=== PATIENT | female | born 1985 | race Two or more races ===

== ENCOUNTER 2020-11-27 09:48 | Emergency (ER) | payer MEDICAID, SELFPAY ==
--- NOTE | ~2020-11-27 | US_ITS ---
EXAMINATION: US OBSTETRICAL ULTRASOUND CLINICAL INFORMATION: First trimester . Bleeding. COMPARISON: None. LMP: Not available. Gestational age by maternal dates is . Estimated date of delivery by maternal dates is . TECHNIQUE: Transabdominal first trimester OB ultrasound FINDINGS: There is a single intrauterine gestational sac with visible yolk sac, embryo/fetus, and cardiac activity. There is a single thin membrane seen in the gestational sac. It is uncertain whether this represents the amnion/normal chorioamniotic separation. There is no significant subchorionic hemorrhage or hematoma. HR: 160 beats per minute. CRL (crown rump length): 6.57 cm (13 weeks 0 days +/- 4 days). ARAM (estimated date of delivery): 06/04/2021 +/- 4 days. MATERNAL ADNEXA: The right maternal ovary measures 2.5 x 1.6 x 2.8 cm. The left maternal ovary measures 3 x 1.8 x 2.6 cm. There is no significant maternal adnexal mass. No maternal pelvic ascites. US/US OB pelvic and transvaginal IMPRESSION: 1. Single intrauterine gestation with ultrasound gestational age of 13 weeks 0 days +/- 4 days. 2. Estimated date of delivery is 06/04/2021 +/- 4 days. 3. There is a single thin membrane seen in the gestational sac. It is uncertain whether this represents the amnion/normal chorioamniotic separation.
[2020-11-27 10:24] VITALS: BP 111/72; PULSE 79; RESP 18; TEMP 36.6; O2SAT 100; BMI 30.2
[2020-11-27 11:46] LABS: MANUAL DIFF FLAG NO
[2020-11-27 11:47] LABS: Appearance Urine HAZY; Color Urine YELLOW; Glucose Urine UA 100 MG/DL (NEG); Leukocyte Esterase Urine NEG (NEG); Nitrite Urine NEG (NEG); Urine Blood NEG (NEG); Urine Ketones NEG (NEG); Urine Protein NEG (NEG-TRACE)
[2020-11-27 11:51] LABS: Basophils Percent Auto 0.2 % (0-2); Eosinophils Percent Auto 0.3 % (0-4); Hematocrit 40.2 % (37-47); Hemoglobin 13.5 g/dl (12.0-16.0); Imm Gran Abs Auto 0.02 X10*3/uL (0.00-0.03); Imm Gran Pct Auto 0.3 % (0.0-0.4); Lymphocytes Absolute Auto 1.8 X10*3/uL (1.2-4.9); Lymphocytes Percent Auto 30.4 % (20-40); Mean Corpuscular HGB Conc 33.6 g/dl (31.0-35.0); Mean Corpuscular Hemoglobin 29.4 pg (27.0-33.0); Mean Corpuscular Volume 87.6 fL (80-98); Mean Platelet Volume 10.8 fL (9.4-12.3); Monocytes Absolute Auto 0.4 X10*3/uL (0.1-1.2); Monocytes Percent Auto 6.6 % (2-11); Neutrophils Absolute Auto 3.6 X10*3/uL (2.0-8.3); Neutrophils Percent Auto 62.2 % (45-73); Platelet Count 284 X10*3/uL (160-400); Red Blood Count 4.59 X10*6/uL (4.20-5.50); Red Cell Distribution Width 12.6 % (11.0-16.0); White Blood Count 5.8 X10*3/uL (4.8-10.8)
[2020-11-27 12:06] LABS: Anion Gap 12 (12-20); Blood Urea Nitrogen 6 mg/dL (9-16); Calcium 9.3 mg/dL (8.4-10.2); Carbon Dioxide 22 mmol/L (22-29); Chloride 104 mmol/L (96-108); Creatinine Clr Calc Pharmacy 132.4; Estimated Glomerular Filt Rate > 60; Glucose Random 103 mg/dL (60-115); Potassium 3.8 mmol/L (3.3-5.1); Sodium 134 mmol/L (135-145)
--- NOTE | 2020-11-27 13:05 | ED.PREGNANCY ---
HPI - General Chief complaint: Abdominal Pain Stated complaint: 3 mths preg - vag bleed Time Seen by Provider: 11/27/20 13:04 Source: patient Mode of arrival: ambulatory Limitations: no limitations History of Present Illness HPI Narrative: Dark brown vaginal spotting. In August 14 patient had a miscarriage, has not had a normal period since then. Patient states she is 2 months but now having bleeding. MD Complaint: vaginal bleeding Onset (ago): day(s) (2) Severity: mild Quality: Cramping Exacerbating factors: none Associated symptoms: denies other symptoms OB History - Current : no complications Related Data Allergies Allergy/AdvReac Type Severity Reaction Status Date / Time No Known Allergies Allergy Verified 11/27/20 10:27 Review of Systems Constitutional: Constitutional: Reports no additional constitutional complaints Eyes: Eyes: Reports no additional eye complaints ENT: Denies dizziness Cardiovascular: Cardiovascular: Reports no additional cardiovascular complaints Respiratory: Respiratory: Reports as per HPI Gastrointestinal: Gastrointestinal: Reports no additional gastrointestinal complaints Genitourinary: Genitourinary: Reports no additional female genitourinary complaints Musculoskeletal: Musculoskeletal: Reports no additional musculoskeletal complaints Integumentary/Breasts: Skin/Breast: Denies rash Neurologic: Reports system reviewed and no additional complaints, except as documented, Denies dizziness and Denies Sensory deficit (Neuro) Psychiatric: Psychiatric: Denies anxiety [facility] Past Medical History Medical History Asthma Diabetes Social History Social History Advance Directives: No Advance Directives Information Provided: No Patient : No Physical Exam Vital Signs: Vital Signs: Last Vital Signs Temp 98 F 11/27/20 10:24 Pulse 79 11/27/20 10:24 Resp 18 11/27/20 10:24 BP 111/72 11/27/20 10:24 Pulse Ox 100 11/27/20 10:24 Body Mass Index 30.2 Const: General: healthy appearing Nutritional Appearance: average body habitus Orientation/consciousness: oriented to person and patient oriented x3 Limitations: no limitations HENMT: Head: Yes normal to inspection Ears: external ears normal General nose exam: Normal external nose present Mouth: Normal oral and palatal mucosa present and oropharynx normal Throat: Yes posterior oropharynx normal Eyes: General: appearance normal, both eyes and all related structures Neck: Other: supple Neck: Yes normal visual inspection Chest: Chest palpation & inspection: normal inspection of the chest Resp: Auscultation: clear to auscultation bilaterally Cardio: Jugular venous distension: no JVD Rate: regular rate Rhythm: regular rhythm Heart sounds: S1 normal heart sound present and S2 normal heart sound present GI: Inspection: Yes normal to inspection Palpation (GI): Soft to palpation, nontender and No hepatosplenomegaly present Auscultation: normal bowel sounds : General: Yes no CVA tenderness Back/Spine/Pelvis: Back: no CVA tenderness Skin: General skin exam: no rashes or lesions noted Neuro: General: oriented to person and patient oriented x3 Cranial nerves: Yes CN's II-XII intact bilaterally Motor exam (neuro): 5/5 motor strength present throughout Sensory Exam: No Sensory deficit (Neuro) Extrem: General: Yes normal to inspection Psych: Appearance: grossly normal Course Reevaluation(s) Reevaluation #1: US shows normal IUP, no evidence of hemorrhage will dc home with threatened miscarriage instructions Time: 15:46 MDM - OB/Uterine Contractions Lab Data Result diagrams: 11/27/20 11:41 11/27/20 11:41 Labs: Lab Results 11/27/20 11/27/20 11/27/20 Range/Units 11:41 11:41 11:42 WBC 5.8 (4.8-10.8) X10*3/uL RBC 4.59 (4.20-5.50) X10*6/uL Hgb 13.5 (12.0-16.0) g/dl Hct 40.2 (37-47) % MCV 87.6 (80-98) fL MCH 29.4 (27.0-33.0) pg MCHC 33.6 (31.0-35.0) g/dl RDW 12.6 (11.0-16.0) % Plt Count 284 (160-400) X10*3/uL MPV 10.8 (9.4-12.3) fL Immature Gran % (Auto) 0.3 (0.0-0.4) % Neut % (Auto) 62.2 (45-73) % Lymph % (Auto) 30.4 (20-40) % [place] % (Auto) 6.6 (2-11) % Eos % (Auto) 0.3 (0-4) % Baso % (Auto) 0.2 (0-2) % Lymph # (Auto) 1.8 (1.2-4.9) X10*3/uL [place] # (Auto) 0.4 (0.1-1.2) X10*3/uL Eos # (Auto) 0.0 (0.0-0.4) X10*3/uL Baso # (Auto) 0.0 (0.0-0.2) X10*3/uL Abs Immat Gran (auto) 0.02 (0.00-0.03) X10*3/uL Absolute Neuts (auto) 3.6 (2.0-8.3) X10*3/uL Absolute Nucleated RBC 0.000 (0.0-0.012) X10*3/uL Nucleated RBC % (auto) 0.0 (0.0-0.2) /100WBC Sodium 134 L (135-145) mmol/L Potassium 3.8 (3.3-5.1) mmol/L Chloride 104 (96-108) mmol/L Carbon Dioxide 22 (22-29) mmol/L Anion Gap 12 (12-20) BUN 6 L (9-16) mg/dL Creatinine 0.60 (0.5-1.4) mg/dL Estim Creat Clear Calc 132.4 Estimated GFR > 60 Random Glucose 103 (60-115) mg/dL Calcium 9.3 (8.4-10.2) mg/dL Beta HCG, Quant 59764 mIU/mL Urine Color YELLOW Urine Appearance HAZY Urine pH 7.0 (5.0-8.0) Ur Specific [place] 1.020 (1.005-1.025) Urine Protein NEG (NEG-TRACE) MG/DL Urine Glucose (UA) 100 H (NEG) MG/DL Urine Ketones NEG (NEG) MG/DL Urine Blood NEG (NEG) Urine Nitrite NEG (NEG) Ur Leukocyte Esterase NEG (NEG) Imaging Data pelvic US: Radiologist's impression: IMPRESSION: 1. Single intrauterine gestation with ultrasound gestational age of? 13 weeks 0 days +/- 4 days. 2. Estimated date of delivery is 06/04/2021 +/- 4 days. 3. There is a single thin membrane seen in the gestational sac. It is uncertain whether this represents the amnion/normal chorioamniotic separation. Discharge Plan Discharge Clinical Impression: , threatened Patient Disposition: Home, Self-Care Instructions: Threatened Miscarriage (ED) Referrals: Armando Elizabeth MD [Physician] - 5 days (call for follow up)
== END 2020-11-27 17:00 | disposition home or self-care (01) ==
PROVIDERS: Emergency Provider Emergency Medicine
DX: O20.0 Threatened abortion (principal); Z3A.13 13 weeks gestation of pregnancy
CPT/HCPCS: 36415; 76801; 76817; 80048; 81003; 84702; 85025; 99283; 99284

== ENCOUNTER 2021-03-26 10:25 | Emergency (ER) | payer MEDICAID, SELFPAY ==
--- NOTE | ~2021-03-26 | US_ITS ---
EXAMINATION: US ABDOMEN COMPLETE. ULTRASOUND OB LIMITED. CLINICAL INFORMATION: Upper abdominal pain and diarrhea.. COMPARISON: None TECHNIQUE: Real-time imaging of the abdominal viscera. FINDINGS: ABDOMEN: PANCREAS: The pancreas is suboptimally seen. ABDOMINAL AORTA: The proximal segment is normal in caliber. The mid and the distal abdominal aorta segments are not seen. INFERIOR VENA CAVA: Visualized portions are normal. LIVER: Normal. The liver is normal in size. The liver contour is normal. Parenchymal echogenicity is normal. No focal hepatic lesion. There is no intrahepatic biliary duct dilatation seen. GALLBLADDER: There is one large echogenic gallstone with posterior shadowing. There is anechoic fluid within the palmar wall and surrounding the gallbladder wall. COMMON BILE DUCT: Normal in caliber measuring 0.9 cm in diameter. RIGHT KIDNEY: Normal. No hydronephrosis. No renal calculi or focal parenchymal lesions. The kidney measures 10.3 cm in maximum dimension. LEFT KIDNEY: Normal. No hydronephrosis. No renal calculi or focal parenchymal lesions. The kidney measures 13.0 cm in maximum dimension. SPLEEN: Normal. The spleen measures 11.0 cm in maximum dimension. FREE FLUID: None. OB LIMITED ULTRASOUND: The fetus is in cephalic position with a heart rate of 1 69 bpm placenta is posterior. Mild M.D. the gestational age is 29 weeks and 0 days and ARAM of 06/11/2021. Bilateral ovaries are visualized and appear unremarkable. Mild fullness of the right adnexa is seen with large vessels. US/US abdomen complete IMPRESSION: Solitary echogenic large gallstone with fluid within the gallbladder wall and surrounding the gallbladder suggestive of acute cholecystitis. Rest of the abdominal ultrasound is unremarkable. Single live intrauterine fetus with a heart rate of 1 69 bpm. The placenta is unremarkable and lies posterior in location.
[2021-03-26 11:09] LABS: COVID-19 Test Positive (Negative)
[2021-03-26 11:10] VITALS: BP 102/65; PULSE 125; RESP 18; TEMP 36.1; O2SAT 98; BMI 32.5
[2021-03-26 11:39] LABS: MANUAL DIFF FLAG NO
[2021-03-26 11:41] LABS: Basophils Percent Auto 0.2 % (0-2); Eosinophils Percent Auto 0.5 % (0-4); Hematocrit 32.4 % (37.0-47.0); Imm Gran Abs Auto 0.04 X10*3/uL (0.00-0.03); Imm Gran Pct Auto 0.7 % (0.0-0.4); Lymphocytes Absolute Auto 0.5 X10*3/uL (1.2-4.9); Lymphocytes Percent Auto 8.9 % (20-40); Mean Corpuscular Hemoglobin 29.6 pg (27.0-33.0); Mean Corpuscular Volume 87.3 fL (80.0-98.0); Mean Platelet Volume 10.2 fL (9.4-12.3); Monocytes Absolute Auto 0.7 X10*3/uL (0.1-1.2); Monocytes Percent Auto 11.8 % (2-11); Neutrophils Absolute Auto 4.6 x10*3/uL (2.0-8.3); Neutrophils Percent Auto 77.9 % (45-73); Platelet Count 233 X10*3/uL (160-400); Red Blood Count 3.71 X10*6/uL (4.20-5.50); White Blood Count 5.9 X10*3/uL (4.8-10.8)
[2021-03-26 12:02] LABS: Alanine Aminotransferase 69 U/L (0-31); Albumin Level 3.2 g/dL (3.5-5.0); Alkaline Phosphatase 147 U/L (39-117); Anion Gap 13 (12-20); Aspartate Amino Transferase 85 U/L (5-31); Blood Urea Nitrogen 4 mg/dL (9-16); Calcium 8.6 mg/dL (8.4-10.2); Carbon Dioxide 20 mmol/L (22-29); Chloride 105 mmol/L (96-108); Creatinine Clr Calc Pharmacy 125.9; Estimated Glomerular Filt Rate > 60; Glucose Random 266 mg/dL (60-115); Magnesium 1.4 mg/dL (1.6-2.6); Potassium 3.7 mmol/L (3.3-5.1); Sodium 134 mmol/L (135-145); Total Protein 6.2 g/dL (6.5-8.0)
[2021-03-26 12:04] LABS: HCG Quantitative 12417 mIU/mL
[2021-03-26 12:06] LABS: Bilirubin Total 0.3 mg/dL (0.0-1.0)
--- NOTE | 2021-03-26 12:20 | ED_ITS ---
HPI - URI/Sore Throat General Chief Complaint: Upper Respiratory Symptoms Stated Complaint: headache,fever,diarrhea Time Seen by Provider: 03/26/21 11:10 Source: patient Mode of arrival: ambulatory Limitations: no limitations History of Present Illness HPI Narrative: 36-year-old female who is approximately 29 weeks for gestational age who is [id number] being followed by an OBGYN in [place] who has a past medical history of diabetes was on metformin although was switched to insulin presenting to the ED with URI symptoms which include subjective fevers, chills, body aches, fatigue, malaise, myalgias and diarrhea for the past 2 days. Reports that she went to her cousin's house on and they are all having similar symptoms. Although they have not been tested for COVID. She reports that she got 1 dose of the Pfizer vaccine recently. She reports that her was confirmed by ultrasound and she has a follow-up coming up with her OBGYN. She reports she is having some nausea no vomiting. And she is also having some upper abdominal pain for the past 2 days. Denies any lower abdominal pain or back pain. She denies any measured fevers, dizziness, neck pain/stiffness, chest pain or shortness of breath, dyspnea on exertion, orthopnea, palpitations, back pain, dysuria, hematuria, abnormal vaginal discharge, vaginal bleeding, rashes, recent travel or any other symptoms comp laints or concerns at this time. MD elicited complaint: fever and other (Body aches and diarrhea) Pertinent past history: other (See above) Onset (ago): day(s) (2) Consistency: constant Severity: mild Able to tolerate fluids by mouth: Yes Exacerbating factors: nothing Relieving factors: nothing Context: sick contacts Associated symptoms: fever, chills, myalgias, headache and abdominal pain Treatments prior to arrival: none Related Data Allergies Allergy/AdvReac Type Severity Reaction Status Date / Time No Known Allergies Allergy Verified 11/27/20 10:27 Review of Systems Review of Systems: Constitutional : Positive subjective fevers/chills/fatigue/malaise, No Weight loss, No Night Sweats ENT/Mouth : No Hearing loss, No Ear Pain, No Nasal Congestion, No Sinus Pain, No Hoarseness, No sore throat, No Rhinorrhea, No Swallowing Difficulty Eyes: No Eye Pain, No Swelling, No Redness, No Foreign Body, No Discharge, No Vision Changes Cardiovascular : No Chest Pain, No SOB, No Dyspnea on Exertion, No Orthopnea, No Edema, No Palpitations Respiratory : No Cough, No Sputum, No Wheezing, No Smoke Exposure, No Dyspnea Gastrointestinal : Positive nausea/diarrhea and abdominal pain at the upper aspect of the abdomen, no lower abdominal pain, No Vomiting, No Constipation, No Hematochezia, No Melena Genitourinary : no irregular bleeding, No Dysuria, No Urinary Frequency, No Marcelino turia, No Urinary Incontinence, No Urgency, No Flank Pain, No Urinary Flow Changes, No Hesitancy Musculoskeletal : Positive myalgias, No joint pain, No Joint Swelling Skin : No Skin Lesions, No rash Neuro : No Weakness, No Numbness, No Paresthesias, No Loss of Consciousness, No Dizziness, No Headache Psych : No Anxiety/Panic, No Depression, No SI/HI/AH/VH, No Social Issues, Heme/Lymph: No Bruising, No Bleeding,No Lymphadenopathy Endocrine : No Polyuria, No Polydipsia, No Temperature Intolerance Yes all other systems are reviewed and are negative [facility] Past Medical History Attestation statement: The following information was validated with the patient. Medical History Asthma Diabetes Social History Social History Alcohol intake: never Patient Tobacco Use Status: Never used Tobacco Use of substances other than those prescribed or required for medical reasons: No Advance Directives: No Advance Directives Information Provided: No Patient : Yes Physical Exam Vital Signs: Vital Signs: Last Vital Signs Temp 97.0 F 03/26/21 11:10 Pulse 111 H 03/26/21 12:38 Resp 18 03/26/21 12:38 BP 106/67 03/26/21 12:38 Pulse Ox 97 03/26/21 12:38 BMI result Body Mass Index 32.5 vital signs have been reviewed as normal and appeared to be correct. Blood pressure normal. Heart rate tachycardic at 125. Respiration rate normal. Temperature normal. Oxygen saturation normal. Appearance: Alert. Oriented X3. No acute distress. Head: Normal external exam. Normocephalic. Atraumatic. Eyes: PERRLA. EOMI. Conjunctiva and sclera normal. Eyelids normal. ENT: EAC normal. TM's Normal. Pharynx normal. Uvula midline. Moist mucous membranes. No trismus noted. No drooling noted. No muffled voice noted. Neck: Normal inspection. Neck supple. FROM. No adenopathy. Thyroid Normal. No meningeal signs. No neck mass noted. CVS: Normal heart rate and rhythm. Heart sound normal. Pulses normal throughout. No murmurs/rales/gallops. Respiratory: No respiratory distress. Painless inspiration. Breath sounds normal. No wheezes/rales/rhonchi noted. Chest nontender. No accessory muscle usage noted or decreased air movement noted. Abdomen: Gravid uterus consistent with dates. Normal tones noted. Soft and mild tenderness palpation to the epigastric/upper abdominal area. No tenderness to the lower abdomen or the flanks. Bowel sounds normal in all 4 quadrants. No distention noted. No organomegaly noted. No visible injury noted. Back: No CVA tenderness. Full range of motion noted. No rashes/lesion/in duration/fluctuance or signs of infection noted. Skin: Skin warm and dry. Normal skin color. Normal skin turgor. No rashes/lesions/lacerations noted. Extremities: No lower extremity edema. No calf tenderness is noted. Otherwise all other extremities exhibit normal range of motion and nontender. Neuro: Oriented X 3. No motor deficit. No sensory deficit. Reflexes normal. Normal steady gait. No focal neuro deficits noted. Vascular: + radial pulses/+ 2 distal pedal pulses/+2 dorsalis pedis b/l. Normal cap refill. No cyanosis noted to upper extremity nails and lower extremity toes nails. Course Course Course Narrative: 11:20am - 36-year-old female who is approximately 29 weeks for gestational age who is [id number] being followed by an OBGYN in [place] who has a past medical history of diabetes was on metformin although was switched to insulin presenting to the ED with URI symptoms which include subjective fevers, chills, body aches, fatigue, malaise, myalgias and diarrhea for the past 2 days. Reports that she went to her cousin's house on [address] and they are all having similar symptoms. Although they have not been tested for COVID. She reports that she got 1 dose of the Pfizer vaccine recently. She reports that her was confirmed by ultrasound and she has a follow-up coming up with her OBGYN. She reports she is having some nausea no vomiting. And she is also having some upper abdominal pain for the past 2 days. Denies any lower abdominal pain or back pain. Plan: Patient is positive for COVID it was obtained while the patient is in triage. Due to patient having abdominal pain and being 29 weeks will obtain labs including a lipase to evaluate for possible cholecystitis, will also obtain a pelvic/transvaginal OB ultrasound to evaluate the fetus. Will obtain labs and re-evaluate. Reevaluation(s) Reevaluation #1: - labs return patient with mild anemia with an H&H of 11.0/32.4. Sodium 134. Carbon dioxide 20. BUN 4. Random glucose 266. P atient reports she did not take her insulin this morning. Magnesium 1.4 repleting with 2 g of IV magnesium at this time while patient is on a residential monitor. Lipase is only 38. LDH is 148. AST/ALT/alkaline phosphate 85/69/147. Total protein 6.2. Albumin 3[place] [address]. Otherwise all other labs are within normal limits. - UA revealed a 1000 glucose and 15 ketones otherwise no evidence of UTI. - patient is positive for COVID. - ultrasound of OB and complete abdomen revealed large gallstone with fluid within the gallbladder wall and surrounding gallbladder suggestive of acute cholecystitis. The rest of the abdominal ultrasound is within normal limits. And patient has a single live intrauterine fetus with a heart rate of 169 the placenta is unremarkable and lies posterior in location. - therefore at this time I will consult with [facility] for possibl e transfer for acute cholecystitis. Patient is agreeable to this. Time: 13:02 Reevaluation #2: Patient was accepted by OBGYN at [facility] Dr. Sadie Johnson she will go to Labor and delivery. Patient understands agrees with this plan. Time: 13:33 [facility] - URI/Sore Throat Medical Records Attestation: I reviewed the patient's medical records. Lab Data Attestation: I reviewed the patient's lab results. Result diagrams: 03/26/21 11:34 03/26/21 11:34 Labs: Lab Results 03/26/21 03/26/21 03/26/21 Range/Units 10:49 11:34 11:34 WBC 5.9 (4.8-10.8) X10*3/uL RBC 3.71 L (4.20-5.50) X10*6/uL Hgb 11.0 L (12.0-16.0) g/dl Hct 32.4 L (37.0-47.0) % MCV 87.3 (80.0-98.0) fL MCH 29.6 (27.0-33.0) pg MCHC 34.0 (31.0-35.0) g/dl RDW 13.0 (11.0-16.0) % Plt Count 233 (160-400) X10*3/uL MPV 10.2 (9.4-12.3) fL Immature Gran % (Auto) 0.7 H (0.0-0.4) % Neut % (Auto) 77.9 H (45-73) % Lymph % (Auto) 8.9 L (20-40) % [place] % (Auto) 11.8 H (2-11) % Eos % (Auto) 0.5 (0-4) % Baso % (Auto) 0.2 (0-2) % Lymph # (Auto) 0.5 L (1.2-4.9) X10*3/uL [place] # (Auto) 0.7 (0.1-1.2) X10*3/uL Eos # (Auto) 0.0 (0.0-0.4) X10*3/uL Baso # (Auto) 0.0 (0.0-0.2) X10*3/uL Abs Immat Gran (auto) 0.04 H (0.00-0.03) X10*3/uL Absolute Neuts (auto) 4.6 (2.0-8.3) x10*3/uL Absolute Nucleated RBC 0.000 (0.0-0.012) X10*3/uL Nucleated RBC % (auto) 0.0 (0.0-0.2) /100WBC Sodium 134 L (135-145) mmol/L Potassium 3.7 (3.3-5.1) mmol/L Chloride 105 (96-108) mmol/L Carbon Dioxide 20 L (22-29) mmol/L Anion Gap 13 (12-20) BUN 4 L (9-16) mg/dL Creatinine 0.65 (0.5-1.4) mg/dL Estim Creat Clear Calc 125.9 Estimated GFR > 60 Random Glucose 266 H (60-115) mg/dL Calcium 8.6 D (8.4-10.2) mg/dL Magnesium 1.4 L* (1.6-2.6) mg/dL Total Bilirubin 0.3 (0.0-1.0) mg/dL AST 85 H (5-31) U/L ALT 69 H (0-31) U/L Alkaline Phosphatase 147 H (39-117) U/L Lactate Dehydrogenase 148 (122-220) U/L Total Protein 6.2 L (6.5-8.0) g/dL Albumin 3.2 L (3.5-5.0) g/dL Lipase 38 (8-78) U/L Beta HCG, Quant mIU/mL Urine Color Urine Appearance Urine pH (5.0-8.0) Ur Specific [place] (1.005-1.025) Urine Protein (NEG-TRACE) MG/DL Urine Glucose (UA) (NEG) MG/DL Urine Ketones (NEG) MG/DL Urine Blood (NEG) Urine Nitrite (NEG) Ur Leukocyte Esterase (NEG) Urine RBC (0) /HPF Urine WBC (0-4) /HPF Ur Squamous Epith Cells /LPF Urine Bacteria /LPF COVID-19 ([facility]) Positive A (Negative) COVID-19 Clin Com See Note 03/26/21 03/26/21 Range/Units 11:34 12:27 WBC (4.8-10.8) X10*3/uL RBC (4.20-5.50) X10*6/uL Hgb (12.0-16.0) g/dl Hct (37.0-47.0) % MCV (80.0-98.0) fL MCH (27.0-33.0) pg MCHC (31.0-35.0) g/dl RDW (11.0-16.0) % Plt Count (160-400) X10*3/uL MPV (9.4-12.3) fL Immature Gran % (Auto) (0.0-0.4) % Neut % (Auto) (45-73) % Lymph % (Auto) (20-40) % [place] % (Auto) (2-11) % Eos % (Auto) (0-4) % Baso % (Auto) (0-2) % Lymph # (Auto) (1.2-4.9) X10*3/uL [place] # (Auto) (0.1-1.2) X10*3/uL Eos # (Auto) (0.0-0.4) X10*3/uL Baso # (Auto) (0.0-0.2) X10*3/uL Abs Immat Gran (auto) (0.00-0.03) X10*3/uL Absolute Neuts (auto) (2.0-8.3) x10*3/uL Absolute Nucleated RBC (0.0-0.012) X10*3/uL Nucleated RBC % (auto) (0.0-0.2) /100WBC Sodium (135-145) mmol/L Potassium (3.3-5.1) mmol/L Chloride (96-108) mmol/L Carbon Dioxide (22-29) mmol/L Anion Gap (12-20) BUN (9-16) mg/dL Creatinine (0.5-1.4) mg/dL Estim Creat Clear Calc Estimated GFR Random Glucose (60-115) mg/dL Calcium (8.4-10.2) mg/dL Magnesium (1.6-2.6) mg/dL Total Bilirubin (0.0-1.0) mg/dL AST (5-31) U/L ALT (0-31) U/L Alkaline Phosphatase (39-117) U/L Lactate Dehydrogenase (122-220) U/L Total Protein (6.5-8.0) g/dL Albumin (3.5-5.0) g/dL Lipase (8-78) U/L Beta HCG, Quant 66115 mIU/mL Urine Color YELLOW Urine Appearance HAZY Urine pH 6.0 (5.0-8.0) Ur Specific [place] 1.015 (1.005-1.025) Urine Protein NEG (NEG-TRACE) MG/DL Urine Glucose (UA) >=1000 H (NEG) MG/DL Urine Ketones 15 (NEG) MG/DL Urine Blood NEG (NEG) Urine Nitrite NEG (NEG) Ur Leukocyte Esterase NEG (NEG) Urine RBC 0-2 (0) /HPF Urine WBC 0-2 (0-4) /HPF Ur Squamous Epith Cells 1+ /LPF Urine Bacteria NONE /LPF COVID-19 ([facility]) (Negative) COVID-19 Clin Com Imaging Data Abdominal ultrasound Ob ultrasound: Attestation: I personally reviewed and interpreted this imaging study as follows: Radiologist's impression: FINDINGS: ABDOMEN: PANCREAS: The pancreas is suboptimally seen. ABDOMINAL AORTA: The proximal segment is normal in caliber. The mid and the distal abdominal aorta segments are not seen. INFERIOR VENA CAVA: Visualized portions are normal. LIVER: Normal. The liver is normal in size. The liver contour is normal. Parenchymal echogenicity is normal. No focal hepatic lesion. There is no intrahepatic biliary duct dilatation seen. GALLBLADDER: There is one large echogenic gallstone with posterior shadowing. There is anechoic fluid within the palmar wall and surrounding the gallbladder wall. COMMON BILE DUCT: Normal in caliber measuring 0.9 cm in diameter. RIGHT KIDNEY: Normal. No hydronephrosis. No renal calculi or focal parenchymal lesions. The kidney measures 10.3 cm in maximum dimension. LEFT KIDNEY: Normal. No hydronephrosis. No renal calculi or focal parenchymal lesions. The kidney measures 13.0 cm in maximum dimension. SPLEEN: Normal. The spleen measures 11.0 cm in maximum dimension. FREE FLUID: None. OB LIMITED ULTRASOUND: The fetus is in cephalic position with a heart rate of 1 69 bpm placenta is posterior. Mild M.D. the gestational age is 29 weeks and 0 days and ARAM of 06/11/2021. Bilateral ovaries are visualized and appear unremarkable. Mild fullness of the right adnexa is seen with large vessels. US/US abdomen complete IMPRESSION: Solitary echogenic large gallstone with fluid within the gallbladder wall and surrounding the gallbladder suggestive of acute cholecystitis. ? Rest of the abdominal ultrasound is unremarkable. ? Single live intrauterine fetus with a heart rate of 1 69 bpm. The placenta is unremarkable and lies posterior in location. Critical Care Time Critical Care Time Critical Care Time: Yes Total Critical Care Time: 60 Attestation: I personally attest to this time spent taking care of the patient Discharge Plan Discharge Clinical Impression: Acute cholecystitis, COVID-19, Low blood magnesium Patient Disposition: Xfer Acute [facility] Transfer Details: [facility] By JARRETT Johnson at Labor and Delivery
[2021-03-26 12:29] LABS: Lipase 38 U/L (8-78)
[2021-03-26 12:38] VITALS: BP 106/67; PULSE 111; RESP 18; O2SAT 97
[2021-03-26 12:41] LABS: Appearance Urine HAZY; Color Urine YELLOW; Glucose Urine UA >=1000 MG/DL (NEG); Leukocyte Esterase Urine NEG (NEG); Nitrite Urine NEG (NEG); Specific Gravity - Urine 1.015 (1.005-1.025); Urine Blood NEG (NEG); Urine Ketones 15 MG/DL (NEG); Urine Protein NEG (NEG-TRACE)
[2021-03-26 12:50] LABS: Lactate Dehydrogenase 148 U/L (122-220)
[2021-03-26 12:58] LABS: RBC Urine 0-2 /HPF (0); Squamous Epithelial Cell Urine 1+ /LPF; WBC Urine 0-2 /HPF (0-4)
[2021-03-26] MEDS: Magnesium Sulfate/H2O 2 GM/50 ML PIGGYBACK IV (13:30)
[2021-03-26] MEDS: 0.9 % Sodium Chloride 1,000 ML 999 ML IVCONT (13:30)
--- NOTE | 2021-03-26 14:07 | PC.NURSE ---
@14:05 CALL FROM [facility] PT PLACEMENT WITH ROOM ASSIGNMENT [place] [address], ROOM [address]22 DR THEODORE CHAVARRIA MD RN TO RN SHOULD BE CALLED TO [phone]
--- NOTE | 2021-03-26 14:30 | PC.NURSE ---
call placed to [facility] for report
[2021-03-26 16:13] VITALS: BP 106/71; PULSE 107; RESP 16; O2SAT 98
== END 2021-03-26 18:06 | disposition short-term general hospital (02) ==
PROVIDERS: Physician Assistant Medical; Emergency Provider Emergency Medicine
DX: O98.513 Other viral diseases complicating pregnancy, third trimester (principal); U07.1 COVID-19; O99.613 Diseases of the digestive system complicating pregnancy, third trimester; K81.0 Acute cholecystitis; O26.893 Other specified pregnancy related conditions, third trimester; E83.42 Hypomagnesemia; O24.113 Pre-existing type 2 diabetes mellitus, in pregnancy, third trimester; E11.9 Type 2 diabetes mellitus without complications; Z79.4 Long term (current) use of insulin; O09.523 Supervision of elderly multigravida, third trimester; Z3A.29 29 weeks gestation of pregnancy
CPT/HCPCS: 36415; 76700; 76815; 80053; 81001; 83615; 83690; 83735; 84702; 85025; 87635; 96361; 96365; 96366; 99284; 99291; J3475

== ENCOUNTER 2021-05-02 00:15 | Emergency (ER) | payer MEDICAID, SELFPAY ==
[2021-05-02 00:18] VITALS: BP 159/86; PULSE 96; RESP 16; TEMP 36.8; O2SAT 99; BMI 33.3
--- NOTE | 2021-05-02 00:34 | ED.GENADULT ---
HPI - General Adult General Chief complaint: Extremity Problem Stated complaint: both feet and abd swollen Time Seen by Provider: 05/02/21 00:32 Source: patient Mode of arrival: ambulatory Limitations: no limitations History of Present Illness HPI narrative: 34w6d D = US IDDM no issues during other than had GB removed she reports she came in tonight due to her ankles being swollen and more painful, has been on her feet a lot more at work. 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[employer]) Associated symptoms: other (has mild headache) Treatments prior to arrival: none Related Data Allergies Allergy/AdvReac Type Severity Reaction Status Date / Time No Known Allergies Allergy Verified 11/27/20 10:27 Review of Systems Review of Systems: Constitutional : No Fever, No Chills ENT/Mouth : No Ear Pain, No Hoarseness, No sore throat Eyes: No Eye Pain, No Swelling, No Redness, No Foreign Body Cardiovascular : No Chest Pain, No SOB Respiratory : No Cough, No Dyspnea Gastrointestinal : No Nausea, No Vomiting, No Diarrhea, No abdominal Pain Genitourinary : No Dysuria, No Hematuria, no vaginal bleeding Musculoskeletal : positive joint pain, No Myalgias, pos Joint Swelling Skin : No Skin lacerations, No rash Neuro : No Weakness, No Numbness, No Loss of Consciousness, No Dizziness, pos Headache Psych : No Anxiety/Panic, No Depression Heme/Lymph: no easy bruising, no Lymphadenopathy Endocrine : No Polyuria, No Polydipsia All other systems reviewed and are negative PMFSH Past Medical History Attestation statement: The following information was validated with the patient. Medical History Asthma Diabetes Social History Social History Alcohol intake: never Patient Tobacco Use Status: Never used Tobacco Use of substances other than those prescribed or required for medical reasons: No Advance Directives: No Patient : Yes Physical Exam Vital Signs: Vital Signs: Last Vital Signs Temp 98.3 F 05/02/21 00:18 Pulse 75 05/02/21 01:43 Resp 16 05/02/21 01:43 BP 117/79 05/02/21 01:43 Pulse Ox 98 05/02/21 01:43 BMI result Body Mass Index 33.3 Appearance: Alert. Oriented X3. No acute distress. Eyes: Pupils equal, round and reactive to light. ENT: Pharynx normal. Neck: Normal inspection. Neck supple. CVS: Normal heart rate and rhythm. Pulses normal. Respiratory: No respiratory distress. Breath sounds normal. Abdomen: Soft and nontender. Gravid uterus Skin: Skin warm and dry. Normal skin color. Normal skin turgor. Extremities: trace to 1+ mild pitting edema of both ankles No calf ttp . no jonathan's sign Neuro: Oriented X 3. No motor deficit. No sensory deficit. Course Course Course Narrative: repeat BP 128/84 - swelling 1+ just at ankles initial BP resolved will trend closely patient aware, suspect initial read in error or anxiety as initial read was the only high one she has had since arrival in ED trace protein in urine BP continues to trend lower BP stable on repeat multiple checks at 2 hour may - only trace protein no other features can follow up with OB in morning will elevate legs and have her repeat BP and UA with OB tomorrow Medical Decision Making MDM Narrative Medical decision making narrative: 34w6d D = [place] IDDM no issues during other than had GB removed she reports she came in tonight due to her ankles being swollen and more painful, has been on her feet a lot more at work. At this time BP resolved on multiple rechecks will obtain labs, UA for protein, observe in ED - has no CP/SOB no contractions no bleeding. Swelling only at ankles no swelling into the legs and no calf pain to suggest DVT. She has been on her feet a lot more at work recently. Could be dependent edema. Will need to observe to evaluate for preeclampsia. At this time I do not suspect DVT isolated to ankles - symmetric. Lab Data Result diagrams: 05/02/21 00:41 05/02/21 01:35 Labs: Lab Results 05/02/21 05/02/21 05/02/21 Range/Units 00:41 00:41 00:41 WBC 7.7 (4.8-10.8) X10*3/uL RBC 4.06 L (4.20-5.50) X10*6/uL Hgb 11.7 L (12.0-16.0) g/dl Hct 35.4 L (37.0-47.0) % MCV 87.2 (80.0-98.0) fL MCH 28.8 (27.0-33.0) pg MCHC 33.1 (31.0-35.0) g/dl RDW 13.6 (11.0-16.0) % Plt Count 284 (160-400) X10*3/uL MPV 11.5 (9.4-12.3) fL Immature Gran % (Auto) 0.4 (0.0-0.4) % Neut % (Auto) 59.5 (45-73) % Lymph % (Auto) 28.4 (20-40) % [place] % (Auto) 10.0 (2-11) % Eos % (Auto) 1.6 (0-4) % Baso % (Auto) 0.1 (0-2) % Lymph # (Auto) 2.2 (1.2-4.9) X10*3/uL [place] # (Auto) 0.8 (0.1-1.2) X10*3/uL Eos # (Auto) 0.1 (0.0-0.4) X10*3/uL Baso # (Auto) 0.0 (0.0-0.2) X10*3/uL Abs Immat Gran (auto) 0.03 (0.00-0.03) X10*3/uL Absolute Neuts (auto) 4.6 (2.0-8.3) x10*3/uL Absolute Nucleated RBC 0.000 (0.0-0.012) X10*3/uL Nucleated RBC % (auto) 0.0 (0.0-0.2) /100WBC PT 10.9 (9.9-13.0) SEC INR 1.0 (0.9-1.1) Sodium (135-145) mmol/L Potassium (3.3-5.1) mmol/L Chloride (96-108) mmol/L Carbon Dioxide (22-29) mmol/L Anion Gap (12-20) BUN (9-16) mg/dL Creatinine (0.5-1.4) mg/dL Estim Creat Clear Calc Estimated GFR POC Glucose (60-115) mg/dL Random Glucose (60-115) mg/dL Calcium (8.4-10.2) mg/dL Total Bilirubin (0.0-1.0) mg/dL Direct Bilirubin (0.0-0.5) mg/dL AST (5-31) U/L ALT (0-31) U/L Alkaline Phosphatase (39-117) U/L B-Natriuretic Peptide 17 (<100) pg/mL Total Protein (6.5-8.0) g/dL Albumin (3.5-5.0) g/dL Lipase (8-78) U/L Urine Color Urine Appearance Urine pH (5.0-8.0) Ur Specific [place] (1.005-1.025) Urine Protein (NEG-TRACE) MG/DL Urine Glucose (UA) (NEG) MG/DL Urine Ketones (NEG) MG/DL Urine Blood (NEG) Urine Nitrite (NEG) Ur Leukocyte Esterase (NEG) COVID-19 (CHRISTIAN) (Negative) COVID-19 Clin Com 05/02/21 05/02/21 05/02/21 Range/Units 00:41 00:44 01:00 WBC (4.8-10.8) X10*3/uL RBC (4.20-5.50) X10*6/uL Hgb (12.0-16.0) g/dl Hct (37.0-47.0) % MCV (80.0-98.0) fL MCH (27.0-33.0) pg MCHC (31.0-35.0) g/dl RDW (11.0-16.0) % Plt Count (160-400) X10*3/uL MPV (9.4-12.3) fL Immature Gran % (Auto) (0.0-0.4) % Neut % (Auto) (45-73) % Lymph % (Auto) (20-40) % [place] % (Auto) (2-11) % Eos % (Auto) (0-4) % Baso % (Auto) (0-2) % Lymph # (Auto) (1.2-4.9) X10*3/uL [place] # (Auto) (0.1-1.2) X10*3/uL Eos # (Auto) (0.0-0.4) X10*3/uL Baso # (Auto) (0.0-0.2) X10*3/uL Abs Immat Gran (auto) (0.00-0.03) X10*3/uL Absolute Neuts (auto) (2.0-8.3) x10*3/uL Absolute Nucleated RBC (0.0-0.012) X10*3/uL Nucleated RBC % (auto) (0.0-0.2) /100WBC PT (9.9-13.0) SEC INR (0.9-1.1) Sodium (135-145) mmol/L Potassium (3.3-5.1) mmol/L Chloride (96-108) mmol/L Carbon Dioxide (22-29) mmol/L Anion Gap (12-20) BUN (9-16) mg/dL Creatinine (0.5-1.4) mg/dL Estim Creat Clear Calc Estimated GFR POC Glucose 141 H (60-115) mg/dL Random Glucose (60-115) mg/dL Calcium (8.4-10.2) mg/dL Total Bilirubin (0.0-1.0) mg/dL Direct Bilirubin (0.0-0.5) mg/dL AST (5-31) U/L ALT (0-31) U/L Alkaline Phosphatase (39-117) U/L B-Natriuretic Peptide (<100) pg/mL Total Protein (6.5-8.0) g/dL Albumin (3.5-5.0) g/dL Lipase (8-78) U/L Urine Color YELLOW Urine Appearance CLEAR Urine pH 7.5 (5.0-8.0) Ur Specific [place] 1.020 (1.005-1.025) Urine Protein TRACE (NEG-TRACE) MG/DL Urine Glucose (UA) NEG (NEG) MG/DL Urine Ketones 5 (NEG) MG/DL Urine Blood NEG (NEG) Urine Nitrite NEG (NEG) Ur Leukocyte Esterase NEG (NEG) COVID-19 (CHRISTIAN) Negative (Negative) COVID-19 Clin Com See Note 05/02/21 Range/Units 01:35 WBC (4.8-10.8) X10*3/uL RBC (4.20-5.50) X10*6/uL Hgb (12.0-16.0) g/dl Hct (37.0-47.0) % MCV (80.0-98.0) fL MCH (27.0-33.0) pg MCHC (31.0-35.0) g/dl RDW (11.0-16.0) % Plt Count (160-400) X10*3/uL MPV (9.4-12.3) fL Immature Gran % (Auto) (0.0-0.4) % Neut % (Auto) (45-73) % Lymph % (Auto) (20-40) % [place] % (Auto) (2-11) % Eos % (Auto) (0-4) % Baso % (Auto) (0-2) % Lymph # (Auto) (1.2-4.9) X10*3/uL [place] # (Auto) (0.1-1.2) X10*3/uL Eos # (Auto) (0.0-0.4) X10*3/uL Baso # (Auto) (0.0-0.2) X10*3/uL Abs Immat Gran (auto) (0.00-0.03) X10*3/uL Absolute Neuts (auto) (2.0-8.3) x10*3/uL Absolute Nucleated RBC (0.0-0.012) X10*3/uL Nucleated RBC % (auto) (0.0-0.2) /100WBC PT (9.9-13.0) SEC INR (0.9-1.1) Sodium 136 (135-145) mmol/L Potassium 3.9 (3.3-5.1) mmol/L Chloride 107 (96-108) mmol/L Carbon Dioxide 23 (22-29) mmol/L Anion Gap 10 L (12-20) BUN 10 D (9-16) mg/dL Creatinine 0.64 (0.5-1.4) mg/dL Estim Creat Clear Calc 129.2 Estimated GFR > 60 POC Glucose (60-115) mg/dL Random Glucose 139 H (60-115) mg/dL Calcium 8.4 (8.4-10.2) mg/dL Total Bilirubin 0.2 (0.0-1.0) mg/dL Direct Bilirubin < 0.2 (0.0-0.5) mg/dL AST 17 D (5-31) U/L ALT 11 (0-31) U/L Alkaline Phosphatase 188 H D (39-117) U/L B-Natriuretic Peptide (<100) pg/mL Total Protein 5.8 L (6.5-8.0) g/dL Albumin 2.9 L (3.5-5.0) g/dL Lipase 31 (8-78) U/L Urine Color Urine Appearance Urine pH (5.0-8.0) Ur Specific [place] (1.005-1.025) Urine Protein (NEG-TRACE) MG/DL Urine Glucose (UA) (NEG) MG/DL Urine Ketones (NEG) MG/DL Urine Blood (NEG) Urine Nitrite (NEG) Ur Leukocyte Esterase (NEG) COVID-19 (CHRISTIAN) (Negative) COVID-19 Clin Com Discharge Plan Discharge Clinical Impression: Pedal edema Patient Disposition: Home, Self-Care Instructions: Leg Edema (ED) Additional Instructions: return to ED for any worsening symptoms or concerns NEGATIVE COVID por favor zaria a hackett obstetra ma?danny repita los estudios de presi?n arterial y orina ma?danny eleva tus piernas Stand Alone Forms: Work/School Release Print Language: Mauritian
[2021-05-02 00:45] VITALS: BP 124/84; PULSE 97; RESP 15
[2021-05-02 00:49] LABS: MANUAL DIFF FLAG NO
[2021-05-02] MEDS: Acetaminophen 325 MG TABLET 650 MG PO (00:50)
[2021-05-02 00:53] LABS: Appearance Urine CLEAR; Color Urine YELLOW; Glucose Urine UA NEG (NEG); Leukocyte Esterase Urine NEG (NEG); Nitrite Urine NEG (NEG); PH 7.5 (5.0-8.0); Urine Blood NEG (NEG); Urine Ketones 5 MG/DL (NEG); Urine Protein TRACE MG/DL (NEG-TRACE)
[2021-05-02 00:53] LABS: Basophils Percent Auto 0.1 % (0-2); Eosinophils Absolute Auto 0.1 X10*3/uL (0.0-0.4); Eosinophils Percent Auto 1.6 % (0-4); Hematocrit 35.4 % (37.0-47.0); Hemoglobin 11.7 g/dl (12.0-16.0); Imm Gran Abs Auto 0.03 X10*3/uL (0.00-0.03); Imm Gran Pct Auto 0.4 % (0.0-0.4); Lymphocytes Absolute Auto 2.2 X10*3/uL (1.2-4.9); Lymphocytes Percent Auto 28.4 % (20-40); Mean Corpuscular HGB Conc 33.1 g/dl (31.0-35.0); Mean Corpuscular Hemoglobin 28.8 pg (27.0-33.0); Mean Corpuscular Volume 87.2 fL (80.0-98.0); Mean Platelet Volume 11.5 fL (9.4-12.3); Monocytes Absolute Auto 0.8 X10*3/uL (0.1-1.2); Neutrophils Absolute Auto 4.6 x10*3/uL (2.0-8.3); Neutrophils Percent Auto 59.5 % (45-73); Platelet Count 284 X10*3/uL (160-400); Red Blood Count 4.06 X10*6/uL (4.20-5.50); Red Cell Distribution Width 13.6 % (11.0-16.0); White Blood Count 7.7 X10*3/uL (4.8-10.8)
[2021-05-02 00:58] LABS: Prothrombin Time 10.9 SEC (9.9-13.0)
--- NOTE | 2021-05-02 01:07 | PC.NURSE ---
pt a&o, no increase of sob or chest pain. Iv placed, labs drawn, ua collected and sent. Provider into asseess pt. heart beat was 139. Poc completed and provider aware. no new orders at this time.
[2021-05-02 01:10] LABS: Glucose, Whole Blood 141 mg/dL (60-115)
[2021-05-02 01:14] LABS: COVID-19 Test Negative (Negative); IDNOW Serial# 55D5AD1C
[2021-05-02 01:16] LABS: B Type Natriuretic Peptide 17 pg/mL (<100)
[2021-05-02 01:43] VITALS: BP 117/79; PULSE 75; RESP 16; O2SAT 98
[2021-05-02 01:55] LABS: Anion Gap 10 (12-20); Blood Urea Nitrogen 10 mg/dL (9-16); Calcium 8.4 mg/dL (8.4-10.2); Carbon Dioxide 23 mmol/L (22-29); Chloride 107 mmol/L (96-108); Creatinine Clr Calc Pharmacy 129.2; Estimated Glomerular Filt Rate > 60; Glucose Random 139 mg/dL (60-115); Potassium 3.9 mmol/L (3.3-5.1); Sodium 136 mmol/L (135-145)
[2021-05-02 02:04] LABS: Alanine Aminotransferase 11 U/L (0-31); Albumin Level 2.9 g/dL (3.5-5.0); Alkaline Phosphatase 188 U/L (39-117); Aspartate Amino Transferase 17 U/L (5-31); Bilirubin Direct < 0.2 mg/dL (0.0-0.5); Bilirubin Total 0.2 mg/dL (0.0-1.0); Lipase 31 U/L (8-78); Total Protein 5.8 g/dL (6.5-8.0)
[2021-05-02 02:12] VITALS: BP 106/56; PULSE 79; RESP 16
== END 2021-05-02 02:27 | disposition home or self-care (01) ==
PROVIDERS: Emergency Provider Emergency Medicine
DX: R60.0 Localized edema (principal); M79.672 Pain in left foot; M79.671 Pain in right foot; Z20.822 Contact with and (suspected) exposure to COVID-19; Z79.899 Other long term (current) drug therapy
CPT/HCPCS: 36415; 80048; 80076; 81003; 82947; 83690; 83880; 85025; 85610; 87635; 99284

== ENCOUNTER 2022-03-24 20:54 | Emergency (ER) | payer MEDICAID, SELFPAY ==
[2022-03-24 21:00] VITALS: BP 124/69; PULSE 92; RESP 20; TEMP 36.5; O2SAT 100; BMI 32.9
[2022-03-24 21:44] VITALS: BP 115/61; PULSE 95; RESP 22; TEMP 37; O2SAT 98
--- NOTE | 2022-03-24 21:48 | PC.NURSE ---
Pt's 30 weeks , HR 150 and mom's V/S are stable. Pt's reports, hx of preclampsia with previous . Pt was connected to the compliance monitor and it shows NSR. Pt has IV 20 on right forearm. PT's is at bedside.
--- NOTE | 2022-03-24 22:12 | ED.FEMALEGU ---
HPI - Female Genitourinary General Chief complaint: Urogenital-Female Stated complaint: upper left abd pain Time Seen by Provider: 03/24/22 22:00 Source: patient and family Mode of arrival: ambulatory Limitations: no limitations History of Present Illness HPI Narrative: 37-year-old female 30 weeks came in for evaluation of left upper quadrant abdominal pain that has been constant for the past 2 days pain is moderate 5/10, no radiation, no relieving factor, no aggravating factor, patient feels acid reflux and acidity in the epigastric area, patient also feels lower abdominal contractions but no radiation to the back or back pain , no vaginal discharge or vaginal bleed. Past surgical history is significant for and cholecystectomy. Related Data Allergies Allergy/AdvReac Type Severity Reaction Status Date / Time No Known Allergies Allergy Verified 11/27/20 10:27 Review of Systems Review of Systems: All other systems are reviewed and are negative Constitutional: Reports as per HPI and Reports no additional constitutional complaints Eyes: Reports as per HPI and Reports no additional eye complaints Reports system reviewed and no additional complaints, except as documented Cardiovascular: Reports as per HPI and Reports no additional cardiovascular complaints Respiratory: Reports as per HPI and Reports no additional respiratory complaints Gastrointestinal: Reports as per HPI and Reports no additional gastrointestinal complaints Genitourinary: Reports no additional female genitourinary complaints Musculoskeletal: Reports no additional musculoskeletal complaints Skin/Breast: Reports system reviewed and no additional complaints, except as docu Psychiatric: Reports no additional psychiatric complaints Endocrine: Reports no additional endocrine complaints Hematologic/Lymphatic: Reports no additional hematologic/lymphatic complaints Allergic/Immunologic: Reports no additional allergic/immunologic complaints Reports system reviewed and no additional complaints, except as documented and Reports Abnormal speech present [facility] Past Medical History Medical History Asthma Diabetes Social History Social History Alcohol intake: never Patient Tobacco Use Status: Never used Tobacco Smoked in Last 30 Days: No Use of substances other than those prescribed or required for medical reasons: No Advance Directives: No Patient : Yes Physical Exam Vital Signs: Vital Signs: Last Vital Signs Temp 98.6 F 03/25/22 00:19 Pulse 85 03/25/22 00:19 Resp 22 H 03/25/22 00:19 BP 107/68 03/25/22 00:19 Pulse Ox 98 03/25/22 00:19 O2 Del Method 03/25/22 00:19 BMI result Body Mass Index 32.9 vital signs have been reviewed as appeared to be correct. Blood pressure normal. Heart rate normal. Respiration rate normal. Temperature normal. Oxygen saturation normal. Appearance: Alert. Oriented X3. No acute distress. Head: Normal external exam. Normocephalic. Atraumatic. No Hernández signs noted. No raccoon eyes noted Eyes: PERRLA. EOMI. Conjunctiva and sclera normal. Eyelids normal. ENT: TM's Normal. Pharynx normal. Uvula midline. Moist mucous membranes. No trismus noted. No drooling noted. No muffled voice noted. Neck: Normal inspection. Neck supple. FROM. No adenopathy. Thyroid Normal. No meningeal signs. No neck mass noted. CVS: Normal heart rate and rhythm. Heart sound normal. No murmurs noted. Pulses normal throughout. Respiratory: No respiratory distress. Painless inspiration. Breath sounds normal. No wheezes/rales/rhonchi noted. Chest nontender. No accessory muscle usage noted or decreased air movement noted. Abdomen: Soft , mild left upper quadrant tenderness, no rebound tenderness, no guarding. Bowel sounds normal in all 4 quadrants. No distention noted. No organomegaly noted. No visible injury noted. pelvic exam: Normal external genitalia, no bleeding, no tenderness, no CMT, Os is closed, no blood in the vault, no cervical effacement, no active contractions. Back: No CVA tenderness. Full range of motion noted. Skin: Skin warm and dry. Normal skin color. Normal skin turgor. No rashes/lesions/lacerations noted. Extremities: No lower extremity edema. Extremities exhibit normal range of motion. Extremities nontender. Neuro: Oriented X 3. Cranial nerve exam: II-XII are grossly intact No motor deficit. No sensory deficit. Reflexes normal. Course Course Course Narrative: left upper quadrant abdominal pain patient has a slight elevation of lipase was mild non complicated pancreatitis patient works at [employer] which she eat a lot of fried chicken patient was instructed to avoid eating fried chicken or fatty food and continue with drinking plenty of fluid and low-fat diet until the symptoms improve patient has an appointment with her OBGYN in a week was instructed to return if the pain is worsening or start to develop nausea or vomiting or increased lower abdominal pain. Reevaluation(s) Reevaluation #1: the case discussed with Dr. Elizabeth who recommended to transfer the patient to [facility] for further monitoring for pre term labor. The case discussed with [facility] at [facility] who accepted the patient by Dr. Baldwin. patient/ opted to drive to [facility] and not taking the ambulance patient is stable to go with her own car. Time: 00:40 Medications Administered Discontinued Medications Generic Name Dose Route Start Last Admin Trade Name Freq PRN Reason Stop Dose Admin Acetaminophen 650 mg 03/24/22 23:32 03/24/22 23:55 Acetaminophen 325 Mg Tablet PO 03/24/22 23:33 650 mg ONCE ONE Administration Sodium Chloride 1,000 mls @ 999 mls/hr 03/24/22 22:11 03/24/22 22:34 Ns IV 03/24/22 23:11 999 mls/hr .[id number] ONE Administration Medical Decision Making Differential Diagnosis Differential Diagnoses: The differential diagnosis associated with the presentation includes ( Active labor, pancreatitis, gastritis, colitis, UTI.) Consult Healthcare Provider Management of the patient was discussed with: Server Systems Administrator (Dr. Elizabeth) Lab Data MDM Lab Attestation statement: I reviewed the patient's lab results. Result Diagrams: 03/24/22 22:38 03/24/22 22:38 Labs: Lab Results 03/24/22 03/24/22 03/24/22 Range/Units 22:38 22:38 22:38 WBC 6.3 (4.8-10.8) X10*3/uL RBC 3.35 L (4.20-5.50) X10*6/uL Hgb 9.7 L (12.0-16.0) g/dl Hct 28.6 L (37.0-47.0) % MCV 85.4 (80.0-98.0) fL MCH 29.0 (27.0-33.0) pg MCHC 33.9 (31.0-35.0) g/dl RDW 13.2 (11.0-16.0) % Plt Count 241 (160-400) X10*3/uL MPV 10.2 (9.4-12.3) fL Immature Gran % (Auto) 0.3 (0.0-0.4) % Neut % (Auto) 59.1 (45-73) % Lymph % (Auto) 31.8 (20-40) % [place] % (Auto) 8.1 (2-11) % Eos % (Auto) 0.5 (0-4) % Baso % (Auto) 0.2 (0-2) % Lymph # (Auto) 2.0 (1.2-4.9) X10*3/uL [place] # (Auto) 0.5 (0.1-1.2) X10*3/uL Eos # (Auto) 0.0 (0.0-0.4) X10*3/uL Baso # (Auto) 0.0 (0.0-0.2) X10*3/uL Abs Immat Gran (auto) 0.02 (0.00-0.03) X10*3/uL Absolute Neuts (auto) 3.8 (2.0-8.3) x10*3/uL Absolute Nucleated RBC 0.000 (0.0-0.012) X10*3/uL Nucleated RBC % (auto) 0.0 (0.0-0.2) /100WBC Sodium 136 (135-145) mmol/L Potassium 3.2 L (3.3-5.1) mmol/L Chloride 106 (96-108) mmol/L Carbon Dioxide 22 (22-29) mmol/L Anion Gap 11 L (12-20) BUN 8 L (9-16) mg/dL Creatinine 0.64 (0.5-1.4) mg/dL Estim Creat Clear Calc 127.2 Estimated GFR > 60 Random Glucose 163 H (60-115) mg/dL Calcium 8.4 (8.4-10.2) mg/dL Total Bilirubin 0.5 (0.0-1.0) mg/dL Direct Bilirubin 0.2 (0.0-0.5) mg/dL AST 15 (5-31) U/L ALT 10 (0-31) U/L Alkaline Phosphatase 106 D (39-117) U/L Total Protein 5.9 L (6.5-8.0) g/dL Albumin 3.2 L (3.5-5.0) g/dL Lipase 153 H (8-78) U/L Urine Color Yellow Urine Appearance Clear Urine pH 6.0 (5.0-9.0) Ur Specific [place] >= 1.030 H (1.005-1.025) Urine Protein Negative (Neg-Trace) mg/dL Urine Glucose (UA) >=1000 H (Negative) mg/dL Urine Ketones 15 (Negative) mg/dL Urine Blood Negative (Negative) Urine Nitrite Negative (Negative) Ur Leukocyte Esterase Negative (Negative) Urine RBC 0-2 (0-2) /HPF Urine WBC 0-5 (0-5) /HPF Ur Squamous Epith Cells 11-20 (0-2) /HPF Urine Bacteria None Seen (None Seen) Hyaline Casts 0-2 (0-2) /LPF Discharge Plan Discharge Clinical Impression: Abdominal pain during , Acute pancreatitis, Uterine contractions during Patient Disposition: Xfer Acute Care Hospital Transfer Details: to [facility] Instructions: Pancreatitis (ED) Stand Alone Forms: Work/School Release
[2022-03-24] MEDS: 0.9 % Sodium Chloride 1,000 ML 999 ML IV (22:34)
[2022-03-24 22:52] LABS: MANUAL DIFF FLAG NO
[2022-03-24 22:54] LABS: Basophils Percent Auto 0.2 % (0-2); Eosinophils Percent Auto 0.5 % (0-4); Hematocrit 28.6 % (37.0-47.0); Hemoglobin 9.7 g/dl (12.0-16.0); Imm Gran Abs Auto 0.02 X10*3/uL (0.00-0.03); Imm Gran Pct Auto 0.3 % (0.0-0.4); Lymphocytes Percent Auto 31.8 % (20-40); Mean Corpuscular HGB Conc 33.9 g/dl (31.0-35.0); Mean Corpuscular Volume 85.4 fL (80.0-98.0); Mean Platelet Volume 10.2 fL (9.4-12.3); Monocytes Absolute Auto 0.5 X10*3/uL (0.1-1.2); Monocytes Percent Auto 8.1 % (2-11); Neutrophils Absolute Auto 3.8 x10*3/uL (2.0-8.3); Neutrophils Percent Auto 59.1 % (45-73); Platelet Count 241 X10*3/uL (160-400); Red Blood Count 3.35 X10*6/uL (4.20-5.50); Red Cell Distribution Width 13.2 % (11.0-16.0); White Blood Count 6.3 X10*3/uL (4.8-10.8)
[2022-03-24 22:56] LABS: Appearance Urine Clear; Color Urine Yellow; Glucose Urine UA >=1000 mg/dL (Negative); Leukocyte Esterase Urine Negative (Negative); Nitrite Urine Negative (Negative); Specific Gravity - Urine >= 1.030 (1.005-1.025); UMIC TRIGGER UACC YES; Urine Blood Negative (Negative); Urine Ketones 15 mg/dL (Negative); Urine Protein Negative (Neg-Trace)
[2022-03-24 23:04] LABS: Bacteria Urine None Seen (None Seen); Hyaline Casts Urine 0-2 /LPF (0-2); RBC Urine 0-2 /HPF (0-2); WBC Urine 0-5 /HPF (0-5)
[2022-03-24 23:13] LABS: Alanine Aminotransferase 10 U/L (0-31); Albumin Level 3.2 g/dL (3.5-5.0); Alkaline Phosphatase 106 U/L (39-117); Anion Gap 11 (12-20); Aspartate Amino Transferase 15 U/L (5-31); Bilirubin Direct 0.2 mg/dL (0.0-0.5); Bilirubin Total 0.5 mg/dL (0.0-1.0); Blood Urea Nitrogen 8 mg/dL (9-16); Calcium 8.4 mg/dL (8.4-10.2); Carbon Dioxide 22 mmol/L (22-29); Chloride 106 mmol/L (96-108); Creatinine Clr Calc Pharmacy 127.2; Estimated Glomerular Filt Rate > 60; Glucose Random 163 mg/dL (60-115); Lipase 153 U/L (8-78); Potassium 3.2 mmol/L (3.3-5.1); Sodium 136 mmol/L (135-145); Total Protein 5.9 g/dL (6.5-8.0)
[2022-03-24 23:28] VITALS: BP 90/55; PULSE 90; RESP 18; TEMP 36.7; O2SAT 96
--- NOTE | 2022-03-24 23:47 | PC.NURSE ---
Re-assessment: Pt was examined by the provider. no signs of active labor were seen at the time of the re-assessment. Pt's V/S are stable, pt has an ramonita with [employer] on 03/31/2022.
[2022-03-24] MEDS: Acetaminophen 325 MG TABLET 650 MG PO (23:55)
--- NOTE | 2022-03-25 00:02 | PM.OBCN ---
OB Consult Note - [facility] Data Service Date: 03/25/22 Primary Care Provider: None Physician Grant I was consulted at 11:52 pm on Aiyana Lau who is a 37 year old at 30 weeks of gestation presenting to the emergency room complaining of left upper quadrant abdominal pain over the past 2 days, pain is moderate 5/10, no radiation, no relieving factor, no aggravating factor, patient feels acid reflux and acidity in the epigastric area, patient also feels lower abdominal contractions but no radiation to the back or back pain , no vaginal discharge or vaginal bleed. OB [facility] Past Medical History Medical History Asthma Diabetes Social History Social History Alcohol intake: never Patient Tobacco Use Status: Never used Tobacco Smoked in Last 30 Days: No Use of substances other than those prescribed or required for medical reasons: No Advance Directives: No Patient : Yes Meds Allergies Allergy/AdvReac Type Severity Reaction Status Date / Time No Known Allergies Allergy Verified 11/27/20 10:27 OB Physical Exam Physical Exam Additional Comments: Reported by Dr. Esparza as the following: Abdomen:Soft? , mild left upper quadrant tenderness, no rebound tenderness, no guarding. Bowel sounds normal in all 4 quadrants. No distention. Pelvic exam:? Normal external genitalia, no bleeding, no tenderness, no CMT, Os is closed, no blood heart rate 150 beats per minute OB Consult Results Labs CBC & Chem 7: 03/24/22 22:38 03/24/22 22:38 Labs: Short CBC 03/24/22 Range/Units 22:38 WBC 6.3 (4.8-10.8) X10*3/uL Hgb 9.7 L (12.0-16.0) g/dl Hct 28.6 L (37.0-47.0) % Plt Count 241 (160-400) X10*3/uL BMP 03/24/22 22:38 Sodium 136 Potassium 3.2 L Chloride 106 Carbon Dioxide 22 BUN 8 L Creatinine 0.64 Calcium 8.4 Liver Function 03/24/22 Range/Units 22:38 Total Bilirubin 0.5 (0.0-1.0) mg/dL Direct Bilirubin 0.2 (0.0-0.5) mg/dL AST 15 (5-31) U/L ALT 10 (0-31) U/L Alkaline Phosphatase 106 D (39-117) U/L Albumin 3.2 L (3.5-5.0) g/dL Urine 03/24/22 Range/Units 22:38 Urine Color Yellow Urine Appearance Clear Urine pH 6.0 (5.0-9.0) Ur Specific [place] >= 1.030 H (1.005-1.025) Urine Protein Negative (Neg-Trace) mg/dL Urine Glucose (UA) >=1000 H (Negative) mg/dL OB - CN: A/P Assessment and Plan (1) Abdominal pain during : Status: Acute Plan 11:58 pm, I recommended the following to Dr. Esparza: Transfer the patient jordy to [facility] for contraction monitoring & any additional further ob evaluation of left upper abdominal pain as needed. I spent total of 20 minutes reviewing the chart, communicating to the emergency provider and documenting in the medical record . Time Spent With Patient Time: Total time managing care of this patient today ____ minutes.
[2022-03-25 00:19] VITALS: BP 107/68; PULSE 85; RESP 22; TEMP 37; O2SAT 98
--- NOTE | 2022-03-25 00:44 | MHC.EDTECH ---
[facility]'s Transfer Line called at 0011 per spoke with Stefanie gave patient demographics awaiting a call back. At 0030 [facility] called spoke with , accepted patient to [facility]. Patient will be going by private vehicle.Jono was giving with all paperwork that is needed for transfer.Rn aware
[2022-03-25 01:03] LABS: Glucose, Whole Blood 104 mg/dL (60-115)
[2022-03-25 01:10] LABS: COVID-19 Test Negative (Negative); IDNOW Serial# 16C4AD1C; IDNOW Serial# BCCEAD1C; Influenza A Negative (Negative); Influenza B2 Negative (Negative)
== END 2022-03-25 01:21 | disposition short-term general hospital (02) ==
PROVIDERS: Emergency Provider Emergency Medicine
DX: O26.899 Other specified pregnancy related conditions, unspecified trimester (principal); R10.12 Left upper quadrant pain; O99.613 Diseases of the digestive system complicating pregnancy, third trimester; K85.90 Acute pancreatitis without necrosis or infection, unspecified; Z3A.30 30 weeks gestation of pregnancy; Z20.822 Contact with and (suspected) exposure to COVID-19
CPT/HCPCS: 36415; 80048; 80076; 81001; 82947; 83690; 85025; 87502; 87635; 96360; 99284; 99285

== ENCOUNTER 2022-04-04 15:30 | Emergency (ER) | payer MEDICAID, SELFPAY ==
[2022-04-04 16:20] VITALS: BP 140/83; PULSE 104; RESP 18; TEMP 36.7; O2SAT 97; BMI 31.7
--- NOTE | 2022-04-04 16:20 | ED_ITS ---
HPI - Abdominal Pain General Chief Complaint: Abdominal Pain <Irene Fox NP - Last Filed: 04/04/22 16:23> Stated Complaint: vomiting, back/ side pain, 31 weeks <Irene Fox NP - Last Filed: 04/04/22 16:23> Time Seen by Provider: 04/04/22 16:36 <Irene Fox NP - Last Filed: 04/04/22 16:23> Source: patient <MALDONADO Gonzalez - Last Filed: 04/04/22 18:00> Mode of arrival: ambulatory <MALDONADO Gonzalez - Last Filed: 04/04/22 18:00> Limitations: no limitations <MALDONADO Gonzalez - Last Filed: 04/04/22 18:00> History of Present Illness HPI narrative: This is a 37-year-old female w/ 3 miscarriages currently 31 weeks estimated delivery date 05/12/22 with hx of DM, asthma presenting to the emergency department with complaints severe left upper quadrant pain, nausea and vomiting progressively worsening x2 weeks. Patient tells me she decided to come in today be she has not been able to eat or drink anything for the past few days. Patient tells me that the pain to left upper quadrant was intermittent in nature however has now been continuous since the past day, reports 6 episodes of bilious vomit. No alleviating or aggravating factors. Patient is followed by OBGYN out of [place], she tells me complications of this include gestational diabetes, hypertension in . Patient was brought straight to the emergency department from triage. Patient denies fevers, chills, chest pain, shortness of breath, headache, vision changes, vaginal bleeding or discharge dizziness or weakness. Patient denies any contractions <MALDONADO Gonzalez - Last Filed: 04/04/22 18:00> Related Data Allergies/Adverse Reactions: Allergies Allergy/AdvReac Type Severity Reaction Status Date / Time No Known Allergies Allergy Verified 11/27/20 10:27 <Irene Fox NP - Last Filed: 04/04/22 16:23> Review of Systems Review of Systems Constitutional : No Weight loss, No Fever, No Chills, No Fatigue, No Malaise ENT/Mouth : No sore throat, No Rhinorrhea Eyes: No Eye Pain, No Swelling, No Redness Cardiovascular : No Chest Pain, No SOB, No Dyspnea on Exertion, No Orthopnea, No Edema, No Palpitations Respiratory : No Cough, No Sputum, No Wheezing Gastrointestinal : + Nausea, + Vomiting, No Diarrhea, No Constipation, + abdominal Pain, No Hematochezia, No Melena Genitourinary : No Dysuria, No Urinary Frequency, No Hematuria, Musculoskeletal : No joint pain, No Myalgias, No Joint Swelling Skin : No Skin Lesions, No rash Neuro : No Weakness, No Numbness, No Dizziness, No Headache Psych : No Anxiety/Panic, No Depression All other systems reviewed and are negative <MALDONADO Gonzalez - Last Filed: 04/04/22 18:00> Yes all other systems are reviewed and are negative <MALDONADO Gonzalez - Last Filed: 04/04/22 18:00> [facility] Past Medical History Attestation statement: The following information was validated with the patient. <MALDONADO Gonzalez - Last Filed: 04/04/22 18:00> Source: old records reviewed and nursing notes reviewed <MALDONADO Gonzalez - Last Filed: 04/04/22 18:00> Medical History: Medical History Asthma Diabetes <Irene Fox NP - Last Filed: 04/04/22 16:23> Social History Social History: Social History Alcohol intake: never Patient Tobacco Use Status: Never used Tobacco Advance Directives: No Advance Directives Information Provided: No <Irene Fox NP - Last Filed: 04/04/22 16:23> Physical Exam ED Vital Signs: Vital Signs - 24 hr 04/04/22 16:20 Temperature 98.0 F Pulse Rate 104 H Respiratory Rate 18 Blood Pressure 140/83 H Pulse Oximetry 97 Oxygen Delivery Method Room Air BMI result Body Mass Index 31.7 <Irene Fox NP - Last Filed: 04/04/22 16:23> Vital Signs - 24 hr 04/04/22 16:20 Temperature 98.0 F Pulse Rate 104 H Respiratory Rate 18 Blood Pressure 140/83 H Pulse Oximetry 97 Oxygen Delivery Method Room Air BMI result Body Mass Index 31.7 vss, mild tachycardia <MALDONADO Gonzalez - Last Filed: 04/04/22 18:00> Appearance: Alert.? Oriented X3.? No acute distress.? Head: Normocephalic, atraumatic, no step-offs or deformities Eyes: Pupils equal, round and reactive to light.? ENT: Pharynx normal.? Neck: Normal inspection.? Neck supple.? CVS: Normal heart rate and rhythm.? Pulses normal.? Respiratory: No respiratory distress.? Breath sounds normal.? Abdomen: Soft and tenderness left upper quadrant on palpation.? Skin: Skin warm and dry.? Normal skin color.? Normal skin turgor.? Extremities: No lower extremity edema.? No calf ttp. 5/5 strength to bilateral upper and lower extremities Back: No midline tenderness, no C-spine tenderness, full range of motion, no CVA tenderness bilaterally Neuro: Oriented X 3.? No motor deficit.? No sensory deficit. CN 2-12 intact <MALDONADO Gonzalez - Last Filed: 04/04/22 18:00> Course Course Course Narrative: This is a rapid medical exam. Defer additional HPI, ROS, PE department provider. 37-year-old female currently 31 weeks josy 05/12/22 here with left upper quadrant pain for 2 weeks with vomiting that began today. Went to [facility] but left a long wait. Patient to brought back to room. Will order labs, UA, heart tones, IV fluids and antiemetics <MALDONADO Gonzalez - Last Filed: 04/04/22 18:00> Reevaluation(s) Reevaluation #1: Patient accepted at [facility] Dr. Nimisha Ingram requesting a call back at [phone] with lab results and covid and influenza status. Spoke with resident Yin <MALDONADO Gonzalez - Last Filed: 04/04/22 18:00> Time: 17:14 <MALDONADO Gonzalez Last Filed: 04/04/22 18:00> Reevaluation #2: CBC with leukocytosis 12.6 deviating from patient's baseline of around 5- 6. Patient with a normocytic anemia which appears to be chronic in nature. No acute electrolyte abnormalities requiring intervention. Lipase within normal limits. COVID and influenza pending. <MALDONADO Gonzalez - Last Filed: 04/04/22 18:00> Time: 17:58 <MALDONADO Gonzalez - Last Filed: 04/04/22 18:00> Medical Decision Making Medical Decision Making MDM Narrative: This is a rapid medical exam. Defer additional HPI, ROS, PE department provider. 37-year-old female currently 31 weeks josy 05/12/22 here with left upper quadrant pain for 2 weeks with vomiting that began today. Went to [facility] but left a long wait. Patient to brought back to room. Will order labs, UA, heart tones, IV fluids and antiemetics <Irene Fox NP - Last Filed: 04/04/22 16:23> 1653 37 year old F presenting to the ED w/ severe LUQ pain, nausea, vomiting X2 weeks worsening today. PE w/ tenderness to LUQ on palpation patient appears uncomfortable. heart tones were obtained by auscultation showing 125 beats per minute. I did do a bedside ultrasound which showed a moving fetus, no signs of subchorion ic hemorrhage, heart rate in the 120s 130s, he does actively moving. Concerns for possible pancreatitis. Unlikely acute abdomen, diverticulitis, appendicitis, pyelonephritis or cholecystitis. Other differentials include kidney stone. Plan at this time labs, urine. Will reach out to [facility] <MALDONADO Gonzalez - Last Filed: 04/04/22 18:00> Differential Diagnosis Differential Diagnoses: The differential diagnosis associated with the presentation includes <MALDONADO Gonzalez - Last Filed: 04/04/22 18:00> Concerns for possible pancreatitis. Unlikely acute abdomen, diverticulitis, appendicitis, pyelonephritis or cholecystitis. Other differentials include kidney stone. <MALDONADO Gonzalez - Last Filed: 04/04/22 18:00> Admission/Observation Consideration of admission/observation: Escalation of care including admission/observation considered <MALDONADO Gonzalez - Last Filed: 04/04/22 18:00> Likely will require admission however not at this facility. <MALDONADO Gonzalez - Last Filed: 04/04/22 18:00> Lab Data Result Diagrams: 04/04/22 17:19 04/04/22 17:19 <Irene Fox NP - Last Filed: 04/04/22 16:23> Labs: Lab Results 04/04/22 04/04/22 04/04/22 Range/Units 16:36 16:36 17:19 WBC 12.6 H (4.8-10.8) X10*3/uL RBC 3.73 L (4.20-5.50) X10*6/uL Hgb 10.7 L (12.0-16.0) g/dl Hct 32.4 L (37.0-47.0) % MCV 86.9 (80.0-98.0) fL MCH 28.7 (27.0-33.0) pg MCHC 33.0 (31.0-35.0) g/dl RDW 13.2 (11.0-16.0) % Plt Count 249 (160-400) X10*3/uL MPV 11.3 (9.4-12.3) fL Sodium (135-145) mmol/L Potassium (3.3-5.1) mmol/L Chloride (96-108) mmol/L Carbon Dioxide (22-29) mmol/L Anion Gap (12-20) BUN (9-16) mg/dL Creatinine (0.5-1.4) mg/dL Estim Creat Clear Calc Estimated GFR Random Glucose (60-115) mg/dL Calcium (8.4-10.2) mg/dL Total Bilirubin (0.0-1.0) mg/dL Direct Bilirubin (0.0-0.5) mg/dL AST (5-31) U/L ALT (0-31) U/L Alkaline Phosphatase (39-117) U/L Total Protein (6.5-8.0) g/dL Albumin (3.5-5.0) g/dL Lipase (8-78) U/L Urine Color Dark Yellow Urine Appearance Cloudy Urine pH 5.5 (5.0-9.0) Ur Specific [place] >= 1.030 H (1.005-1.025) Urine Protein 100 (2+) H (Neg-Trace) mg/dL Urine Glucose (UA) 250 H (Negative) mg/dL Urine Ketones 80 (Negative) mg/dL Urine Blood Negative (Negative) Urine Nitrite Negative (Negative) Ur Leukocyte Esterase Small (1+) H (Negative) Urine RBC 0-2 (0-2) /HPF Urine WBC 11-20 H (0-5) /HPF Ur Squamous Epith Cells >20 (0-2) /HPF Urine Bacteria 1+ (None Seen) Hyaline Casts 3-5 (0-2) /LPF Urine Test POSITIVE H (NEGATIVE) 04/04/22 Range/Units 17:19 WBC (4.8-10.8) X10*3/uL RBC (4.20-5.50) X10*6/uL Hgb (12.0-16.0) g/dl Hct (37.0-47.0) % MCV (80.0-98.0) fL MCH (27.0-33.0) pg MCHC (31.0-35.0) g/dl RDW (11.0-16.0) % Plt Count (160-400) X10*3/uL MPV (9.4-12.3) fL Sodium 137 (135-145) mmol/L Potassium 3.9 D (3.3-5.1) mmol/L Chloride 107 (96-108) mmol/L Carbon Dioxide 17 L (22-29) mmol/L Anion Gap 17 (12-20) BUN 9 (9-16) mg/dL Creatinine 0.51 (0.5-1.4) mg/dL Estim Creat Clear Calc 156.7 Estimated GFR > 60 Random Glucose 126 H (60-115) mg/dL Calcium 8.3 L (8.4-10.2) mg/dL Total Bilirubin 0.6 (0.0-1.0) mg/dL Direct Bilirubin 0.2 (0.0-0.5) mg/dL AST 15 (5-31) U/L ALT 9 (0-31) U/L Alkaline Phosphatase 152 H (39-117) U/L Total Protein 6.4 L (6.5-8.0) g/dL Albumin 3.3 L (3.5-5.0) g/dL Lipase 41 (8-78) U/L Urine Color Urine Appearance Urine pH (5.0-9.0) Ur Specific [place] (1.005-1.025) Urine Protein (Neg-Trace) mg/dL Urine Glucose (UA) (Negative) mg/dL Urine Ketones (Negative) mg/dL Urine Blood (Negative) Urine Nitrite (Negative) Ur Leukocyte Esterase (Negative) Urine RBC (0-2) /HPF Urine WBC (0-5) /HPF Ur Squamous Epith Cells (0-2) /HPF Urine Bacteria (None Seen) Hyaline Casts (0-2) /LPF Urine Test (NEGATIVE) <Irene Fox NP - Last Filed: 04/04/22 16:23> Lab Results 04/04/22 04/04/22 04/04/22 Range/Units 16:36 16:36 17:19 WBC 12.6 H (4.8-10.8) X10*3/uL RBC 3.73 L (4.20-5.50) X10*6/uL Hgb 10.7 L (12.0-16.0) g/dl Hct 32.4 L (37.0-47.0) % MCV 86.9 (80.0-98.0) fL MCH 28.7 (27.0-33.0) pg MCHC 33.0 (31.0-35.0) g/dl RDW 13.2 (11.0-16.0) % Plt Count 249 (160-400) X10*3/uL MPV 11.3 (9.4-12.3) fL Sodium (135-145) mmol/L Potassium (3.3-5.1) mmol/L Chloride (96-108) mmol/L Carbon Dioxide (22-29) mmol/L Anion Gap (12-20) BUN (9-16) mg/dL Creatinine (0.5-1.4) mg/dL Estim Creat Clear Calc Estimated GFR Random Glucose (60-115) mg/dL Calcium (8.4-10.2) mg/dL Total Bilirubin (0.0-1.0) mg/dL Direct Bilirubin (0.0-0.5) mg/dL AST (5-31) U/L ALT (0-31) U/L Alkaline Phosphatase (39-117) U/L Total Protein (6.5-8.0) g/dL Albumin (3.5-5.0) g/dL Lipase (8-78) U/L Urine Color Dark Yellow Urine Appearance Cloudy Urine pH 5.5 (5.0-9.0) Ur Specific [place] >= 1.030 H (1.005-1.025) Urine Protein 100 (2+) H (Neg-Trace) mg/dL Urine Glucose (UA) 250 H (Negative) mg/dL Urine Ketones 80 (Negative) mg/dL Urine Blood Negative (Negative) Urine Nitrite Negative (Negative) Ur Leukocyte Esterase Small (1+) H (Negative) Urine RBC 0-2 (0-2) /HPF Urine WBC 11-20 H (0-5) /HPF Ur Squamous Epith Cells >20 (0-2) /HPF Urine Bacteria 1+ (None Seen) Hyaline Casts 3-5 (0-2) /LPF Urine Test POSITIVE H (NEGATIVE) 04/04/22 Range/Units 17:19 WBC (4.8-10.8) X10*3/uL RBC (4.20-5.50) X10*6/uL Hgb (12.0-16.0) g/dl Hct (37.0-47.0) % MCV (80.0-98.0) fL MCH (27.0-33.0) pg MCHC (31.0-35.0) g/dl RDW (11.0-16.0) % Plt Count (160-400) X10*3/uL MPV (9.4-12.3) fL Sodium 137 (135-145) mmol/L Potassium 3.9 D (3.3-5.1) mmol/L Chloride 107 (96-108) mmol/L Carbon Dioxide 17 L (22-29) mmol/L Anion Gap 17 (12-20) BUN 9 (9-16) mg/dL Creatinine 0.51 (0.5-1.4) mg/dL Estim Creat Clear Calc 156.7 Estimated GFR > 60 Random Glucose 126 H (60-115) mg/dL Calcium 8.3 L (8.4-10.2) mg/dL Total Bilirubin 0.6 (0.0-1.0) mg/dL Direct Bilirubin 0.2 (0.0-0.5) mg/dL AST 15 (5-31) U/L ALT 9 (0-31) U/L Alkaline Phosphatase 152 H (39-117) U/L Total Protein 6.4 L (6.5-8.0) g/dL Albumin 3.3 L (3.5-5.0) g/dL Lipase 41 (8-78) U/L Urine Color Urine Appearance Urine pH (5.0-9.0) Ur Specific [place] (1.005-1.025) Urine Protein (Neg-Trace) mg/dL Urine Glucose (UA) (Negative) mg/dL Urine Ketones (Negative) mg/dL Urine Blood (Negative) Urine Nitrite (Negative) Ur Leukocyte Esterase (Negative) Urine RBC (0-2) /HPF Urine WBC (0-5) /HPF Ur Squamous Epith Cells (0-2) /HPF Urine Bacteria (None Seen) Hyaline Casts (0-2) /LPF Urine Test (NEGATIVE) <MALDONADO Gonzalez - Last Filed: 04/04/22 18:00> Medications Administered Discontinued Medications Generic Name Dose Route Start Last Admin Trade Name Freq PRN Reason Stop Dose Admin Sodium Chloride 1,000 mls @ 999 mls/hr 04/04/22 16:30 04/04/22 16:30 Ns IV 04/04/22 17:30 999 mls/hr .Q1H1M SHERYL Administration Ondansetron HCl 4 mg 04/04/22 16:20 04/04/22 16:30 Ondansetron Hcl 4 Mg/2 Ml Vial IVPUSH 04/04/22 16:21 4 mg ONCE ONE Administration <Irene Fox NP - Last Filed: 04/04/22 16:23> Medications Administered Discontinued Medications Generic Name Dose Route Start Last Admin Trade Name Freq PRN Reason Stop Dose Admin Sodium Chloride 1,000 mls @ 999 mls/hr 04/04/22 16:30 04/04/22 16:30 Ns IV 04/04/22 17:30 999 mls/hr .Q1H1M SHERYL Administration Ondansetron HCl 4 mg 04/04/22 16:20 04/04/22 16:30 Ondansetron Hcl 4 Mg/2 Ml Vial IVPUSH 04/04/22 16:21 4 mg ONCE ONE Administration <MALDONADO Gonzalez - Last Filed: 04/04/22 18:00> Critical Care Time Critical Care Time Critical Care Time: Yes <MALDONADO Gonzalez - Last Filed: 04/04/22 18:00> Total Critical Care Time: 35 <MALDONADO Gonzalez - Last Filed: 04/04/22 18:00> Attestation: I attest to this time spent taking care of the patient, obtaining history, physical, reviewing labs, imaging, speaking to my attending, speaking to specialist. <MALDONADO Gonzalez - Last Filed: 04/04/22 18:00> Discharge Plan Discharge Clinical Impression: Abdominal pain, LUQ, <Irene Fox NP - Last Filed: 04/04/22 16:23> Patient Disposition: [facility] <Irene Fox NP - Last Filed: 04/04/22 16:23> Transfer Details: [facility] <Irene Fox NP - Last Filed: 04/04/22 16:23> [facility] <MALDONADO Gonzalez - Last Filed: 04/04/22 18:00>
[2022-04-04] MEDS: 0.9 % Sodium Chloride 1,000 ML 999 ML IV (16:30)
[2022-04-04] MEDS: ondansetron HCL 4 MG/2 ML VIAL IVPUSH (16:30)
[2022-04-04 17:02] LABS: Appearance Urine Cloudy; Color Urine Dark Yellow; Glucose Urine UA 250 mg/dL (Negative); Leukocyte Esterase Urine Small (1+) (Negative); Nitrite Urine Negative (Negative); PH 5.5 (5.0-9.0); Specific Gravity - Urine >= 1.030 (1.005-1.025); UMIC TRIGGER UACC YES; Urine Blood Negative (Negative); Urine Ketones 80 mg/dL (Negative); Urine Protein 100 (2+) mg/dL (Neg-Trace)
[2022-04-04 17:04] LABS: UPreg QC Valid YES; Urine Pregnancy POSITIVE (NEGATIVE)
[2022-04-04 17:16] LABS: Bacteria Urine 1+ (None Seen); RBC Urine 0-2 /HPF (0-2); Squamous Epithelial Cell Urine >20 /HPF (0-2); UACC Culture Trigger YES
[2022-04-04 17:32] LABS: Basophils Percent Auto 0.2 % (0-2); Eosinophils Percent Auto 0.1 % (0-4); Hematocrit 32.4 % (37.0-47.0); Hemoglobin 10.7 g/dl (12.0-16.0); Imm Gran Abs Auto 0.06 X10*3/uL (0.00-0.03); Imm Gran Pct Auto 0.5 % (0.0-0.4); Lymphocytes Absolute Auto 0.4 X10*3/uL (1.2-4.9); Lymphocytes Percent Auto 3.3 % (20-40); MANUAL DIFF FLAG SCAN; Mean Corpuscular Hemoglobin 28.7 pg (27.0-33.0); Mean Corpuscular Volume 86.9 fL (80.0-98.0); Mean Platelet Volume 11.3 fL (9.4-12.3); Monocytes Absolute Auto 0.5 X10*3/uL (0.1-1.2); Monocytes Percent Auto 3.7 % (2-11); Neutrophils Absolute Auto 11.6 x10*3/uL (2.0-8.3); Neutrophils Percent Auto 92.2 % (45-73); Platelet Count 249 X10*3/uL (160-400); Red Blood Count 3.73 X10*6/uL (4.20-5.50); Red Cell Distribution Width 13.2 % (11.0-16.0); SCAN SMEAR FLAG 1; White Blood Count 12.6 X10*3/uL (4.8-10.8)
[2022-04-04 17:51] LABS: Alanine Aminotransferase 9 U/L (0-31); Albumin Level 3.3 g/dL (3.5-5.0); Alkaline Phosphatase 152 U/L (39-117); Anion Gap 17 (12-20); Aspartate Amino Transferase 15 U/L (5-31); Bilirubin Direct 0.2 mg/dL (0.0-0.5); Bilirubin Total 0.6 mg/dL (0.0-1.0); Blood Urea Nitrogen 9 mg/dL (9-16); Calcium 8.3 mg/dL (8.4-10.2); Carbon Dioxide 17 mmol/L (22-29); Chloride 107 mmol/L (96-108); Creatinine Clr Calc Pharmacy 156.7; Estimated Glomerular Filt Rate > 60; Glucose Random 126 mg/dL (60-115); Lipase 41 U/L (8-78); Potassium 3.9 mmol/L (3.3-5.1); Sodium 137 mmol/L (135-145); Total Protein 6.4 g/dL (6.5-8.0)
[2022-04-04 17:59] LABS: COVID-19 Test Negative (Negative); IDNOW Serial# 55D5AD1C; IDNOW Serial# 6674DD1D; Influenza A Negative (Negative); Influenza B2 Negative (Negative)
[2022-04-04 18:07] LABS: SLIDE REVIEW VERIFIED
== END 2022-04-04 19:05 | disposition short-term general hospital (02) ==
PROVIDERS: Nurse Practitioner Family; Physician Assistant; Emergency Provider Emergency Medicine
DX: R10.12 Left upper quadrant pain (principal); Z79.899 Other long term (current) drug therapy; Z20.822 Contact with and (suspected) exposure to COVID-19; Z20.828 Contact with and (suspected) exposure to other viral communicable diseases
CPT/HCPCS: 36415; 80048; 80076; 81001; 81003; 81025; 83690; 84702; 85025; 87086; 87502; 87635; 96374; 99284; 99285; J2405